=== PATIENT | male | born 1965 | race African-American/Black ===

== ENCOUNTER 2019-08-29 07:37 | Emergency (ER) | payer OTHER ==
[2019-08-29 07:49] VITALS: BP 162/94; PULSE 60; TEMP 98.5; BMI 29.1
--- NOTE | 2019-08-29 08:53 | PDOC ---
History of Present Illness - General Chief Complaint: Injury Stated Complaint: FALL Time Seen by Provider: 08/29/19 07:57 History Source: Patient, Family, Spouse Exam Limitations: No Limitations - History of Present Illness Initial Comments: 08/29/19 08:49 CHIEF COMPLAINT: Left lower back pain since 2 AM HISTORY OF PRESENT ILLNESS: 53-year-old man with a history of diabetes and hypertension. Patient was standing on a chair to fix a smoke detector last evening. The chair moved and he fell. He initially did not have any pain or injuries. There was no head or neck injury. However, in the store deli manager hours, he awoke from sleep with pain in his left posterior pelvis and left paralumbar region. He denies any numbness or weakness in his legs other than mild numbness in the tips of his toes from diabetes which is chronic. There is no change in control of bowel or bladder. He denies any other injuries. He is able to ambulate with pain in the left paralumbar region. REVIEW OF SYSTEMS: GENERAL/CONSTITUTIONAL: No fever or chills. No weakness. No weight change. HEAD, EYES, EARS, NOSE AND THROAT: No change in vision. No ear pain or discharge. No sore throat. CARDIOVASCULAR: No chest pain or shortness of breath. RESPIRATORY: No cough, wheezing, or hemoptysis. GASTROINTESTINAL: No nausea, vomiting, diarrhea or constipation. No rectal bleeding. GENITOURINARY: No dysuria, frequency, or change in urination. MUSCULOSKELETAL: No leg pain. Positive left lower back pain and left posterior pelvic pain, see HPI. SKIN AND BREASTS: No rash or easy bruising. NEUROLOGIC: No headache, vertigo, loss of consciousness, or loss of sensation. PSYCHIATRIC: No depression or anxiety. ENDOCRINE: No increased thirst. No abnormal weight change. HEMATOLOGIC/LYMPHATIC: No anemia, easy bleeding, or history of blood clots. ALLERGIC/IMMUNOLOGIC: No hives or skin allergy. No latex allergy. Past History - Past Medical History Allergies/Adverse Reactions: Allergies Allergy/AdvReac Type Severity Reaction Status Date / Time No Known Allergies Allergy Verified 03/08/15 16:39 Home Medications: Ambulatory Orders Amlodipine Besylate [Norvasc -] 5 mg PO DAILY 03/08/15 Lisinopril [Prinivil -] 30 mg PO DAILY 03/08/15 Nebivolol HCl [Bystolic] 5 mg PO DAILY 03/08/15 Glipizide 5 mg PO BID 08/29/19 Metformin HCl [Glucophage] 1,000 mg PO BID 08/29/19 COPD: No Diabetes: Yes HTN: Yes - Psycho Social/Smoking Cessation Hx Smoking Status: No Smoking History: Never smoked Number of Cigarettes Smoked Daily: 0 Information on smoking cessation initiated: No Hx Alcohol Use: Yes Substance Use Type: Alcohol *Physical Exam - Vital Signs Last Vital Signs Temp Pulse Resp BP Pulse Ox 98.5 F 60 15 162/94 100 08/29/19 07:44 08/29/19 07:44 08/29/19 07:44 08/29/19 07:44 08/29/19 07:44 - Physical Exam Comments: 08/29/19 08:54 GENERAL: The patient is awake, alert, and fully oriented, in no acute distress. HEAD: Normal with no signs of trauma. No bruising, no abrasions, no swelling. EYES: Pupils equal, round and reactive to light, extraocular movements intact, sclera anicteric, conjunctiva clear. ENT: Ears normal, nares patent, oropharynx clear without exudates. Moist mucous membranes. NECK: Normal range of motion, supple without lymphadenopathy, JVD, or masses. No bony spine tenderness. LUNGS: Breath sounds equal, clear to auscultation bilaterally. No wheezes, and no crackles. HEART: Regular rate and rhythm, normal S1 and S2 without murmur, rub or gallop. ABDOMEN: Soft, nontender, normoactive bowel sounds. No guarding, no rebound. No masses. BACK: There is tenderness in the posterior, superior iliac crest over the left posterior pelvis. There is left lateral paralumbar tenderness over the lower lumbar region. There is no midline lumbar spine tenderness. EXTREMITIES: Normal range of motion, no edema. No clubbing or cyanosis. No cords, erythema, or tenderness. NEUROLOGICAL: Cranial nerves II through XII grossly intact. Normal speech, normal gait. Gait is normal, no limping. Strength is normal throughout the lower extremities bilaterally. Sensation is intact in the lower extremities with the exception of the tips of the toes from chronic diabetic peripheral neuropathy. PSYCH: Normal mood, normal affect. SKIN: Warm, Dry, normal turgor, no rashes or lesions noted. No bruising, no abrasions, no lacerations. ED Treatment Course - RADIOLOGY Radiology Studies Ordered: Category Date Time Status PELVIS [RAD] Stat Radiology 08/29/19 08:47 Ordered SPINE-LUMBAR SACRAL [RAD] Stat Radiology 08/29/19 08:47 Ordered Medical Decision Making - Medical Decision Making 08/29/19 09:50 53-year-old man status post fall off a chair while reaching above his head last night. He initially did not have pain but then awoke with pain during the night. On examination there is tenderness of the posterior left pelvis and the left paralumbar area. There is no bony spine tenderness. Neurological examination is normal. X-rays of the pelvis and lumbosacral spine were performed. On my preliminary review, there is no fracture or dislocation. Spinal alignment is good. Disc height appears preserved. Final radiology reading is pending at the time of disposition, radiology follow-up protocol activated. Impression: Lumbosacral sprain, pelvic contusion. Plan: Advised Advil or Tylenol. Patient currently declined any pain medication. Advised to apply ice for 24 hours and then heat. Follow-up with primary physician as needed. Discharge - Discharge Information Problems reviewed: Yes Clinical Impression/Diagnosis: Pelvic contusion Qualifiers: Encounter type: initial encounter Qualified Code(s): S30.0XXA - Contusion of lower back and pelvis, initial encounter Sprain, lumbosacral Qualifiers: Encounter type: initial encounter Qualified Code(s): S33.5XXA - Sprain of ligaments of lumbar spine, initial encounter Condition: Stable Disposition: HOME - Follow up/Referral Referrals: Zaria Shoemaker MD [Primary Care Provider] - - Patient Discharge Instructions Patient Printed Discharge Instructions: DI for Back Strain or Sprain Additional Instructions: Today you were evaluated for a fall with left lower back pain. The x-rays of your pelvis and lumbosacral spine were normal. You are advised to rest, take Aleve or Tylenol as needed for pain. Apply ice packs for 24 hours to the painful area. 20 minutes every few hours works well. If you continue to have pain after 24 hours, you may apply a warm heating pad. Follow-up with your primary care physician if the symptoms are not improving or resolving. Return to the emergency department for any severe or progressive symptoms. - Post Discharge Activity
== END 2019-08-29 10:00 | disposition home or self-care (01) ==
LOC: FER 07:37
DX: S30.0XXA Contusion of lower back and pelvis, initial encounter (principal); S33.5XXA Sprain of ligaments of lumbar spine, initial encounter; W07.XXXA Fall from chair, initial encounter; Y93.89 Activity, other specified; Y92.009 Unspecified place in unspecified non-institutional (private) residence as the place of occurrence of the external cause; E11.9 Type 2 diabetes mellitus without complications; I10 Essential (primary) hypertension
CPT/HCPCS: 72100-TC-FY; 72170-TC-FY; 99281-25